=== PATIENT | female | born 1980 | race Caucasian/White ===

== ENCOUNTER 2019-09-05 00:33 | Outpatient (CLI) | payer BC, SELFPAY ==
[2019-09-05 17:34] LABS: SARS-CoV-2 RNA PCR Negative
== END 2019-09-05 00:34 | disposition home or self-care (01) ==
LOC: ANHCOVIDDT 00:33
PROVIDERS: Visit Provider Internal Medicine Gastroenterology
DX: Z01.812 Encounter for preprocedural laboratory examination (principal); Z11.59 Encounter for screening for other viral diseases
CPT/HCPCS: 87635; C9803; U0003

== ENCOUNTER 2019-09-07 00:17 | Day surgery (SDC) | payer BC, SELFPAY ==
[2019-08-30 14:38] VITALS: BMI 34.5
[2019-09-07 07:38] VITALS: BP 134/90; PULSE 82; RESP 16; TEMP 36.6; O2SAT 82; BMI 37.3
[2019-09-07] MEDS: LACTATED RINGERS 1,000 ML 150 ML IV CONT (08:10)
--- NOTE | 2019-09-07 08:16 | P.HP_ITS ---
History of Present Illness History of Present Illness Consent: Risks, benefits, and alternatives have been discussed and questions answered. Patient agrees to proceed with procedure. Chief complaint: family hx colon ca Narrative: Clemencia Johnson is a 39 year old W female Referred for screening colonoscopy secondary to family history of colon cancer in her father diagnosed in his 50s. Patient is asymptomatic. [facility] Past Medical History Medical History Anxiety Asthma Heart murmur Surgical History Surgical History History of Family History Family History Mother Family history of malignant neoplasm Grandparent Family history of lung cancer Social History Social History Alcohol intake: current Meds Home Medications and Allergies Home Medications Medication Instructions Recorded Confirmed Type ergocalciferol (vitamin D2) 1,250 mcg PO 2XW 08/30/19 08/30/19 History etonogestrel-ethinyl estradiol See Rx Instructions .ROUTE .COMPLEX 08/30/19 08/30/19 History [NuvaRing] fluoxetine 40 mg PO DAILY 08/30/19 08/30/19 History Allergies Allergy/AdvReac Type Severity Reaction Status Date / Time No Known Allergies Verified 09/07/19 07:47 Vital Signs Vital Signs - 24 hr 09/07/19 07:38 Temperature 36.6 C Pulse Rate 82 Respiratory Rate 16 Blood Pressure 134/90 Pulse Oximetry 82 L Exam Const: Orientation/consciousness: patient oriented x3 Resp: Auscultation: clear to auscultation bilaterally Cardio: Rate: regular rate Rhythm: regular rhythm Heart sounds: no murmurs GI: GI Palp: Yes Soft to palpation, No Tenderness to palpation present (GI), Yes No hepatosplenomegaly present and No Palpable mass present Auscultation: normal bowel sounds Neuro: General: patient oriented x3 and no focal motor deficits Extrem: General: no pedal edema Assessment and Plan Additional Plan Screening colonoscopy secondary family history of colon cancer in father
--- NOTE | 2019-09-07 08:21 | WPDANESEPPF ---
Anes - Initial Pre Proc Eval Procedure: Operation Date: 09/07/19 09:00 Proposed Procedures p Screening Colonoscopy - Cl Rivas MD Date/Time: 09/07/19 08:21 Surgeon: Cl Rivas MD Pre Op Diagnosis: family hx colon ca Patient Data Age: 39 Gender: F Height: 1.7 m Weight: 108.3 kg Last Vital Signs Temp 36.6 C 09/07/19 07:38 Pulse 82 09/07/19 07:38 Resp 16 09/07/19 07:38 BP 134/90 09/07/19 07:38 Pulse Ox 82 L 09/07/19 07:38 Allergies Allergy/AdvReac Type Severity Reaction Status Date / Time No Known Allergies Verified 09/07/19 07:47 Home Medications Medication Instructions Recorded Confirmed Type ergocalciferol (vitamin D2) 1,250 mcg PO 2XW 08/30/19 08/30/19 History etonogestrel-ethinyl estradiol See Rx Instructions .ROUTE .COMPLEX 08/30/19 08/30/19 History [NuvaRing] fluoxetine 40 mg PO DAILY 08/30/19 08/30/19 History Patient hx anesthesia problems: none Family hx anesthesia problems: none PMFSH Past Medical History Medical History Anxiety Asthma Heart murmur Surgical History Surgical History History of Family History Family History Mother Family history of malignant neoplasm Grandparent Family history of lung cancer Social History Social History Alcohol intake: current Anes - Eval Final PreProcedure Day of Procedure 09/07/19 08:21 Patient weight: obese Heart: regular rate and rhythm Lungs: clear to auscultation and normal air movement Airway: Mallampati scale class II Neurological: alert and oriented Last oral intake: >/= 8 hours ASA classification: II Emergent: no Anesthetic plan: proceed Anesthesia type and monitoring: general GIVS and standard monitoring Informed Consent: The patient's anesthetic plan and its attendant risks and benefits were discussed with the patient/family/POA. Questions were solicited and answers provided to the satisfaction of the patient/family/POA.
[2019-09-07 09:26] VITALS: BP 123/79; PULSE 96; RESP 30; O2SAT 98
[2019-09-07 09:32] VITALS: BP 150/78; PULSE 86; RESP 14; O2SAT 99
[2019-09-07 09:41] VITALS: BP 158/71; PULSE 97; RESP 20; O2SAT 100
== END 2019-09-07 09:57 | disposition home or self-care (01) ==
PROVIDERS: Visit Provider Internal Medicine Gastroenterology
PROC: 0DJD8ZZ Inspection of Lower Intestinal Tract, Via Natural or Artificial Opening Endoscopic (ICD-10-PCS; CPT 45378; principal; 2019-09-07 09:00)
DX: Z12.11 Encounter for screening for malignant neoplasm of colon (principal); K63.5 Polyp of colon; F41.9 Anxiety disorder, unspecified; E66.9 Obesity, unspecified; Z68.37 Body mass index [BMI] 37.0-37.9, adult
CPT/HCPCS: 45380; 88305; J2704; J7120

== ENCOUNTER → 2022-12-20 09:34 | Outpatient (CLI) | payer BC, SELFPAY ==
--- NOTE | ~2022-12-20 | MM_ITS ---
EXAMINATION: MM screening víctor BI w david HISTORY: Screening mammogram TECHNIQUE: Craniocaudal and mediolateral oblique 3-D tomosynthesis images were obtained and synthetic 2-D images were generated. CAD analysis was submitted and interpreted. COMPARISON: 03/02/2019 bilateral screening mammogram BREAST PARENCHYMAL COMPOSITION: The breasts are almost entirely fatty. FINDINGS: There is no evidence of suspicious mass, calcification, or architectural distortion to sugg est malignancy in either breast. There has been no suspicious interval change. IMPRESSION: 1. No mammographic evidence of malignancy. 2. Recommend routine screening mammography in one year. BI-RADS Category 1: Negative Reviewed, dictated and finalized at location A.
== END ==
PROVIDERS: PCP Nurse Practitioner; Visit Provider Physician Assistant
DX: Z12.31 Encounter for screening mammogram for malignant neoplasm of breast (principal)
CPT/HCPCS: 77063; 77067

== ENCOUNTER 2023-01-28 00:16 | Day surgery (SDC) | payer BC, SELFPAY ==
[2023-01-21 15:28] VITALS: BMI 36.3
--- NOTE | 2023-01-26 09:02 | SUR.PREOP ---
Patient called regarding upcoming procedure. Message left on patient's voicemail regarding preop instructions, appointment times, and procedure prep.
--- NOTE | 2023-01-27 15:35 | PM.HPGS ---
History of Present Illness History of Present Illness Consent: Risks, benefits, and alternatives have been discussed and questions answered. Patient agrees to proceed with procedure. Chief complaint: HX colon polyps, FA HX colon cancer Narrative: Clemencia Johnson is a 42 year old female referred for colon cancer screening. She does have a family history of colon cancer. Her father had colon cancer in his early 50s. She had a few polyps removed 3 years ago. Review of Systems Review of Systems: All systems reviewed & are unremarkable except as noted in HPI and below PMFSH Past Medical History Medical History Anxiety Asthma Heart murmur Surgical History Surgical History History of Family History Family History Mother Family history of malignant neoplasm Grandparent Family history of lung cancer Aneurysm Heart disease Depression Hypertension Father Hypertension Depression Heart disease Alcoholism Carcinoma of colon Social History Social History Smoking status: Never smoker Tobacco type: cigarettes Alcohol intake: current Substance use: never Substance use type: does not use Current Housing: Decline to Answer Concerned About Future Housing: Decline to Answer Difficulty Paying Gas/Electric Bills: Decline to Answer Difficulty Paying for Meds: Decline to Answer Currently Unemployed: Decline to Answer Education: Decline to Answer Difficulty w/ Childcare or Family Care: Decline to Answer Living arrangements: with family Spiritual care concerns: No Meds Home Medications and Allergies Home Medications Medication Instructions Recorded Confirmed Type etonogestrel 0.12 mg-ethinyl See Rx Instructions .Route .COMPLEX 08/30/19 01/28/23 History estradiol 0.015 mg/24 hr vaginal ring (NuvaRing) ergocalciferol (vitamin D2) 1,250 25,000 mcg PO 2XW 06/06/20 01/28/23 History mcg (50,000 unit) capsule sertraline 100 mg tablet 150 mg PO DAILY 08/21/21 01/28/23 History hydrochlorothiazide 12.5 mg tablet 12.5 mg PO DAILY #90 tabs 11/19/22 01/28/23 Rx lisdexamfetamine 30 mg capsule 30 mg PO DAILY 11/19/22 01/28/23 History (Vyvanse) secukinumab 150 mg/mL subcutaneous 300 mg subcut MONTHLY 11/19/22 01/28/23 History syringe (Cosentyx 300 mg/2 Syringes () rosuvastatin 5 mg tablet 5 mg PO DAILY #90 tabs 12/24/22 01/28/23 Rx ropinirole 1 mg tablet 1 mg PO BID 01/21/23 01/28/23 History Allergies Allergy/AdvReac Type Severity Reaction Status Date / Time No Known Allergies Allergy Verified 01/28/23 08:31 Exam Resp: Auscultation: clear to auscultation bilaterally Cardio: Rate: regular rate Rhythm: regular rhythm GI: GI Palp: Yes Soft to palpation and No Tenderness to palpation present (GI) Assessment and Plan Assessment and plan (1) Colon cancer screening: Code(s): Z12.11 - Encounter for screening for malignant neoplasm of colon Status: Acute Assessment and Plan: Colonoscopy with possible biopsy or polypectomy or cautery or injection of substances.
[2023-01-28 08:37] VITALS: BP 142/90; PULSE 80; RESP 16; TEMP 36.3; O2SAT 80
[2023-01-28] MEDS: LACTATED RINGERS 1,000 ML 150 ML IV CONT (08:47)
[2023-01-28 09:54] VITALS: BP 120/79; PULSE 106; RESP 31; O2SAT 99
[2023-01-28 10:04] VITALS: BP 136/89; PULSE 108; RESP 26; O2SAT 100
[2023-01-28 10:14] VITALS: BP 179/84; PULSE 78; RESP 15; O2SAT 98
== END 2023-01-28 10:24 | disposition home or self-care (01) ==
PROVIDERS: PCP Physician Assistant; Visit Provider Internal Medicine Gastroenterology
PROC: 0DJD8ZZ Inspection of Lower Intestinal Tract, Via Natural or Artificial Opening Endoscopic (ICD-10-PCS; CPT 45378; principal; 2023-01-28 09:15)
DX: Z12.11 Encounter for screening for malignant neoplasm of colon (principal); F41.9 Anxiety disorder, unspecified; J45.909 Unspecified asthma, uncomplicated; R01.1 Cardiac murmur, unspecified; Z86.010 Personal history of colon polyps; Z80.0 Family history of malignant neoplasm of digestive organs; Z80.1 Family history of malignant neoplasm of trachea, bronchus and lung; Z82.49 Family history of ischemic heart disease and other diseases of the circulatory system
CPT/HCPCS: 45378; J2704; J7120

== ENCOUNTER 2023-07-16 08:29 | Outpatient (CLI) | payer BC, SELFPAY ==
--- NOTE | ~2023-07-16 | XR_ITS ---
EXAM: XR hip BI 2V w AP pelvis DATE: 07/16/2023 09:21 HISTORY: M25.559 - Pain in unspecified hip . COMPARISON: None available. FINDINGS: Normal mineralization. No fracture or dislocation. No lytic or blastic lesion. Mild right hip subchondral sclerosis, with osteophytosis at the acetabular rim. No erosion or periosteal change. Soft tissues within normal limits. IMPRESSION: Mild right hip osteoarthritis. Reviewed, dictated and finalized at location K.
== END 2023-07-16 08:30 ==
PROVIDERS: PCP Physician Assistant; Visit Provider Physician Assistant
DX: M25.552 Pain in left hip (principal); M16.11 Unilateral primary osteoarthritis, right hip
CPT/HCPCS: 73521

== ENCOUNTER 2023-11-26 09:53 | Outpatient (CLI) | payer BC, SELFPAY ==
--- NOTE | ~2023-11-26 | XR_ITS ---
EXAMINATION: XR sacroiliac joints min 3V DATE: 11/26/2023 10:26 INDICATION: Psoriatic arthritis TECHNIQUE: Frontal and left and right oblique views of the sacralized joints were obtained. COMPARISON: None. FINDINGS: Bone alignment is normal. No fracture. Sacral arches are intact. Mild osteoarthritis at the bilateral hip and sacroiliac joints. No erosions to suggest an infiltrate sacroiliitis. Mild to moderate lower lumbar spondylosis. IMPRESSION: 1. Mild bilateral sacral erect osteoarthritis with no erosions to suggest infiltrate sacroiliitis. Reviewed, dictated and finalized at location A. IMPRESSION: 1. Mild bilateral sacral erect osteoarthritis with no erosions to suggest infil trate sacroiliitis.
== END 2023-11-26 09:54 | disposition home or self-care (01) ==
PROVIDERS: PCP Physician Assistant
DX: M47.818 Spondylosis without myelopathy or radiculopathy, sacral and sacrococcygeal region (principal); L40.50 Arthropathic psoriasis, unspecified
CPT/HCPCS: 72202

== ENCOUNTER 2025-01-25 08:17 | Outpatient (CLI) | payer BC, SELFPAY ==
--- NOTE | ~2025-01-25 | US_ITS ---
EXAMINATION: US transvaginal, 01/25/2025 8:55 SWAMPER HISTORY: Abn Bleeding Comparison: None Technique: Farris-scale and color Doppler images were obtained. Findings: Uterus: Uterus anteverted 3.9 x 4.3 x 4.2 cm. . Endometrium 5.1 mm. Right Ovary:Right ovary not identified due to bowel gas. Left Ovary: Left ovary not identified due to bowel gas Free Fluid: None Impression: No etiology to explain the patient's symptoms Reviewed, dictated and finalized at location P. PER Impression: No etiology to explain the patient's symptoms
== END 2025-01-25 08:18 | disposition home or self-care (01) ==
LOC: MICIMG 08:17
PROVIDERS: PCP Internal Medicine; Visit Provider Obstetrics & Gynecology Gynecology
DX: N93.8 Other specified abnormal uterine and vaginal bleeding (principal)
CPT/HCPCS: 76830

== ENCOUNTER 2025-01-25 08:19 | Outpatient (CLI) | payer BC, SELFPAY ==
--- NOTE | ~2025-01-25 | US_ITS ---
ULTRASOUND ABDOMEN LIMITED (RIGHT UPPER QUADRANT) Clinical History: R74.8 - Abnormal levels of other serum enzymes Comparison: None Technique: Right upper quadrant sonography Findings: Liver: Normal size. Echogenic. No intrahepatic biliary ductal dilatation. Normal hepatopedal flow main portal vein. Common Duct: 6 mm. Gallbladder: No stones. No wall thickening. No pericholecystic fluid. Pancreas: Unremarkable. IMPRESSION: 1. Hepatic steatosis and/or hepatocellular disease. Reviewed, dictated and finalized at location R. INOLOGY PROFESSOR
== END 2025-01-25 08:20 | disposition home or self-care (01) ==
LOC: MICIMG 08:19
PROVIDERS: PCP Internal Medicine; Visit Provider Internal Medicine
DX: R74.8 Abnormal levels of other serum enzymes (principal); K76.0 Fatty (change of) liver, not elsewhere classified
CPT/HCPCS: 76705